=== PATIENT | female | born 1955 | race Caucasian/White ===

== ENCOUNTER 2024-03-01 08:44 | Day surgery (SDC) | payer BC ==
[2024-02-29 12:35] VITALS: BMI 26.2
[~2024-03-01 08:44] MED LIST: EPINEPHrine 0.3 MG in Ophthalmic Irrigation Solution 500 ML IRR SCH
[2024-03-01] MEDS ORDERED: Lidocaine 1% PF 5 ML VIAL ONE (09:14)
[2024-03-01] MEDS ORDERED: PROPOFOL 20 ML ONE (09:14)
[2024-03-01] MEDS ORDERED: fentaNYL 50 mcg/mL 1 mL Vial ONE (09:14)
[2024-03-01] MEDS ORDERED: Midazolam HCl 2 mg/2 ml Vial ONE (09:14)
[2024-03-01] MEDS ORDERED: PHENYLephrine 2.5% Ophth Soln 15 ml Bottle ONE (10:26)
[2024-03-01] MEDS ORDERED: Cyclopentolate 1% Opth Drop 2 ML BOT ONE (10:26)
== END 2024-03-01 12:30 | disposition home or self-care (01) ==
LOC: SDC 08:44
PROVIDERS: ATTEND Ophthalmology Retina Specialist
PROC: 08T43ZZ Resection of Right Vitreous, Percutaneous Approach (ICD-10-PCS; principal; 2024-03-01)
DX: H35.341 Macular cyst, hole, or pseudohole, right eye (principal); I10 Essential (primary) hypertension; K21.9 Gastro-esophageal reflux disease without esophagitis; E78.5 Hyperlipidemia, unspecified; G43.909 Migraine, unspecified, not intractable, without status migrainosus; K58.9 Irritable bowel syndrome, unspecified; Z79.899 Other long term (current) drug therapy
CPT/HCPCS: 67025; J0171; J2250; J2704; J3010